=== PATIENT | female | born 1970 | race African-American/Black ===

== ENCOUNTER 2024-07-06 00:25 | Emergency (ER) | payer SELFPAY ==
[~2024-07-06] VITALS: Ht 157.5 cm; Wt 83.0 kg
[2024-07-06 00:48] VITALS: TEMP 37.1; O2SAT 100
[2024-07-06 02:39] LABS: CHLORIDE 105 mEq/L (98-107); POTASSIUM 4.2 mEq/L (3.5-5.1); SODIUM 141 mEq/L (136-145)
[2024-07-06 02:40] LABS: CALCIUM 9.2 mg/dL (8.7-10.4); CARBON DIOXIDE 17 mEq/L (21-32)
[2024-07-06 02:45] LABS: GLUCOSE 57 mg/dL (70-105); UREA NITROGEN BLOOD 20 mg/dL (9-23)
[2024-07-06 02:46] LABS: TROPONIN I HIGH SENSITIVITY 11 ng/L (3.0-34)
[2024-07-06 03:34] LABS: BASOPHILS % 0.5 % (0.0-2.0); EOSINOPHILS % 0.1 % (0.0-5.0); HEMATOCRIT. 36.7 % (36.0-48.0); HEMOGLOBIN. 12.4 g/dL (12.0-16.0); LYMPHOCYTES % 19.3 % (20.0-50.0); MEAN CORPUSCULAR HGB CONC 33.9 g/dL (31.0-37.0); MEAN CORPUSCULAR VOLUME 97.3 fL (81.0-99.0); MEAN PLATELET VOLUME 8.1 fl (7.4-10.4); MONOCYTES % 3.1 % (2.0-8.0); PLATELET 496 x1000/uL (130-400); RED BLOOD CELL COUNT 3.77 mill/uL (4.2-5.4); RED CELL DISTRIBUTION WIDTH 15.3 % (11.6-14.6); WHITE BLOOD COUNT 7.1 x1000/uL (4.5-11.0)
[2024-07-06 05:26] VITALS: BP 147/71; PULSE 102; RESP 18; O2SAT 100
== END 2024-07-06 05:36 | disposition home or self-care (01) ==
LOC: ER 00:25
DX: R55 Syncope and collapse (principal); E11.9 Type 2 diabetes mellitus without complications; I10 Essential (primary) hypertension; Z88.5 Allergy status to narcotic agent; Z98.84 Bariatric surgery status; Z98.890 Other specified postprocedural states
CPT/HCPCS: 36415; 71045; 80048; 84484; 85025; 93005; 99285